=== PATIENT | female | born 1960 | race Caucasian/White ===

== ENCOUNTER → 2017-06-26 | Day surgery (SDC) | payer OTHER ==
[~2017-06-26] VITALS: Ht 172.7 cm; Wt 112.5 kg
[~2017-06-26] MED LIST: 0.9% Sodium Chloride 1,000 ML IV SCH; LEVO175T5 PO; PREG75CA PO; Sodium Chloride LOK Flush 10 mL Syringe IV PRN; fentaNYL-PF 50 mCg/mL 2 mL Inj IVPUSH PRN
[2017-06-26 07:20] VITALS: BP 116/72; PULSE 67; RESP 14; O2SAT 95
[2017-06-26 08:17] VITALS: BP 112/76; PULSE 59; RESP 16; O2SAT 97
[2017-06-26 08:28] VITALS: BP 102/70; PULSE 64; RESP 16; O2SAT 99
--- NOTE | 2017-06-26 08:30 | ENDO ---
[address] [address] ENDOSCOPY PROCEDURE PATIENT: CARTER GOLDEN : 1960 MR#: [id number] ADMIT: 06/26/2017 JOB ID: [id number] DATE: 06/26/2017 TYPE OF OPERATION: Colonoscopy. PREOPERATIVE DIAGNOSIS(ES): Family history of colon cancer. POSTOPERATIVE DIAGNOSIS(ES): Small internal hemorrhoids. ANESTHESIA: 1. Fentanyl 100 mcg. 2. Versed 5 mg IV administered. COMPLICATIONS: None. BLOOD LOSS: Minimal. DESCRIPTION OF PROCEDURE: After risks and benefits were explained to the patient, informed consent was obtained. After anesthesia administered, colonoscope was then inserted per rectum to the cecum. Mucosa carefully examined. Prep of the patient was good. After the procedure was done, the scope was withdrawn and procedure terminated. FINDINGS: Upon inspection of the anus, no masses, hemorrhoids, ulcers, fissures that were seen. Throughout the entire examination, there were no polyps, masses, or lesions. Retroflexion showed small internal hemorrhoids. IMPRESSION: Small internal hemorrhoids. RECOMMENDATIONS: Repeat colonoscopy in five years for family history of colon cancer, and stool softer as needed.
== END | disposition home or self-care (01) ==
LOC: END 01:39
PROVIDERS: ATTEND Internal Medicine Gastroenterology
DX: Z12.11 Encounter for screening for malignant neoplasm of colon (principal); K64.8 Other hemorrhoids; Z80.0 Family history of malignant neoplasm of digestive organs; E03.9 Hypothyroidism, unspecified